=== PATIENT | female | born 1945 | race Caucasian/White ===

== ENCOUNTER 2019-02-28 07:00 | Outpatient (CLI) | payer MEDICARE, BC ==
--- NOTE | 2019-02-28 08:34 | CT ---
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 TECHNIQUE: Multiple CTA images were obtained of the abdomen and pelvis with bilateral lower extremity runoff uti lizing IV contrast and 3D reformatted imaging. Axial, coronal and sagittal reformatted images were constructed from the raw data. FINDINGS: ABDOMEN: Lung bases: Clear Liver: Diffuse fatty liver with scattered calcified granuloma Gallbladder: Cholelithiasis Pancreas: Normal. Adrenal glands: Normal. Spleen: Normal. Kidneys and ureters: Normal. No hydronephrosis. Lymph nodes:No lymphadenopathy. Free fluid in abdomen:No free fluid is evident. PELVIS: Small and large bowel: There is a mild amount of retained stool within the colon. The small bowel is of normal caliber. There are scattered colonic diverticulosis. Appendix:Normal Bladder: Normal. Rectal and perirectal soft tissues:Normal. Reproductive structures: Normal. Free fluid in pelvis: No free fluid is evident. Lymphadenopathy pelvis: No lymphadenopathy is evident. Osseous structures: No acute osseous abnormality. No destructive osteolytic or osteoblastic lesion i s identified. There is scattered degenerative and osteoarthritic changes. Soft tissues:Normal. VASCULATURE: Aorta: There is mild to moderate atherosclerotic irregularity involving the abdominal aorta without a neurysmal dilatation, dissection or focal occlusion. Celiac:Normal in caliber without evidence of stenosis or occlusion. SMA:Normal in caliber without evidence of stenosis or occlusion. Renal arteries:There is mild atherosclerotic calcification involving the proximal renal arteries bila terally without hemodynamically significant stenosis. LIONEL:Normal in caliber without evidence of stenosis or occlusion. Right common iliac artery: Normal in caliber without evidence of stenosis or occlusion. Right external iliac artery: Normal in caliber without evidence of stenosis or occlusion. Right commo n iliac artery measures 4.8 mm. There is mild irregularity seen proximally within the right external iliac as well as within its mid segment. Right internal iliac artery: There is complete occlusion of the proximal right internal iliac artery with reconstitution approximately 1 cm distally through collateral vasculature. Left common iliac artery: There is complete occlusion of the left common iliac artery from its origin with reconstitution seen at the level of the left external and left internal iliac arteries. Left external iliac artery: Measures 4.5 mm in its greatest diameter. There is mild luminal caliber n arrowing distally. No definite hemodynamically significant stenosis is evident.. Left internal iliac artery: Normal in caliber without evidence of stenosis or occlusion. Right common femoral artery: Measures 7.4 mm without hemodynamically significant stenosis. Right deep femoral artery: Normal in caliber without evidence of stenosis or occlusion. Right superficial femoral artery: Normal in caliber without evidence of stenosis or occlusion. Right popliteal artery: Normal in caliber without evidence of stenosis or occlusion. Right posterior tibial artery: Normal in caliber without evidence of stenosis or occlusion. Right anterior tibial artery: The right anterior tibial artery is visualized up to the level of the ankle joint. There is predominantly two-vessel runoff to the right ankle. Right peroneal artery: Normal in caliber without evidence of stenosis or occlusion. Left common femoral artery: Measures 6.6 mm. There is mild luminal caliber narrowing due to an eccen tric partially calcified atherosclerotic plaque. Left deep femoral artery: Normal in caliber without evidence of stenosis or occlusion. Left superficial femoral artery: Normal in caliber without evidence of stenosis or occlusion. Left popliteal artery: Normal in caliber without evidence of stenosis or occlusion. Left posterior tibial artery: Normal in caliber without evidence of stenosis or occlusion. Left anterior tibial artery: The left anterior tibial artery is visualized up to the level of the di stal tibial plafond. There is two-vessel runoff to the level of the ankle. Left peroneal artery: Normal in caliber without evidence of stenosis or occlusion. Additional findings: None. IMPRESSION: 1. Complete occlusion of the left common iliac artery with reconstitution of flow seen at the level o f proximal left external iliac and left internal iliac arteries through collateral vessels. 2. Loss of visualized flow at the level of the ankles in the anterior vertebral arteries bilaterally. 3. Complete occlusion of the right internal iliac artery at its origin with reconstitution distally t hrough collaterals. 4. Mild luminal caliber narrowing involving the left common femoral artery and right external iliac a rtery. 5. Fatty liver with findings of prior granulomatous disease 6. Colonic diverticulosis. 7. Cholelithiasis
== END 2019-02-28 07:01 | disposition home or self-care (01) ==
LOC: CT 07:00
PROVIDERS: ATTEND Thoracic Surgery (Cardiothoracic Vascular Surgery)
DX: I70.212 Atherosclerosis of native arteries of extremities with intermittent claudication, left leg (principal); K76.0 Fatty (change of) liver, not elsewhere classified; K57.30 Diverticulosis of large intestine without perforation or abscess without bleeding; K80.20 Calculus of gallbladder without cholecystitis without obstruction
CPT/HCPCS: 75635

== ENCOUNTER 2019-03-01 06:02 | Day surgery (SDC) | payer MEDICARE, BC ==
[2019-02-28 14:29] VITALS: BMI 23.8
[2019-03-01] MEDS ORDERED: Heparin (Artline) 500 ML ONE (06:37)
[2019-03-01] MEDS ORDERED: Midazolam HCl 2 mg/2 ml Vial ONE (07:05)
[2019-03-01] MEDS ORDERED: Heparin 10,000 UNITS/1 ML VIAL ONE (07:24)
[2019-03-01] MEDS ORDERED: Protamine Sulfate 50 MG/5 ML VIAL ONE (08:10)
[2019-03-01] MEDS ORDERED: Clopidogrel Bisulfate 300 MG TAB ONE (08:18)
[2019-03-01] MEDS ORDERED: Iopamidol 370 76% 50 ML VIAL FS ONE (11:23)
--- NOTE | 2019-03-01 13:19 | OP ---
DATE OF PROCEDURE: 03/01/2019 PREOPERATIVE DIAGNOSIS: Peripheral artery disease with an occluded left iliac artery. POSTOPERATIVE DIAGNOSIS: Peripheral artery disease with an occluded left iliac artery. PROCEDURES PERFORMED: Aortogram, left lower extremity runoff with KARATE TEACHER, complete occlusion of left common iliac 4-mm balloon, Innova 8 x 60 stent, left common iliac artery, left external iliac artery 6 x 17 Express LD stent. CONTRAST: 32. FLUORO: 11 minutes. SEDATION: Versed. DESCRIPTION OF PROCEDURE: After prepping and draping in the usual fashion, left femoral artery was punctured with ultrasound guidance and a wire inserted. A 5-[place] dilator sheath was passed and a [facility] [employer] wire was advanced to the proximal common iliac artery, where a [place] catheter was advanced over it and then a Glidewire exchanged entering the aorta confirmed with flush. A Murray wire was then placed following which a 4 mm x 40 balloon was inflated x2 to cover the entire lesion, which measured about 6 cm. Repeat angiography showed patency. Following which, an 8 x 60 Innova stent was placed. Following dilation with a 6 x 60 balloon, the Innova stent flared into the aorta as anticipated, but came up short of the distal common iliac artery by about 5 mm and there was significant residual stenosis there. A 6-mm balloon was then used to inflate this, but this did not improve the stenosis and for this reason, a 6 x 17 Express stent was deployed over this area essentially occluding the internal iliac artery. Runoff demonstrated excellent result with no residual stenosis and runoff into the lower leg was obtained demonstrating widely patent SFA, popliteal, anterior tibial takeoff and tibioperoneal takeoff and runoff of the foot was not obtained. The patient tolerated the procedure well. Job ID: [id number]
== END 2019-03-01 13:25 | disposition home or self-care (01) ==
LOC: CCL 06:02
PROVIDERS: ATTEND Thoracic Surgery (Cardiothoracic Vascular Surgery)
PROC: 047D3DZ Dilation of Left Common Iliac Artery with Intraluminal Device, Percutaneous Approach (ICD-10-PCS; principal; 2019-03-01)
PROC: 047J3DZ Dilation of Left External Iliac Artery with Intraluminal Device, Percutaneous Approach (ICD-10-PCS; 2019-03-01)
DX: I70.212 Atherosclerosis of native arteries of extremities with intermittent claudication, left leg (principal); I10 Essential (primary) hypertension; E78.00 Pure hypercholesterolemia, unspecified; Z79.82 Long term (current) use of aspirin; Z79.899 Other long term (current) drug therapy
CPT/HCPCS: 37221; 76942; 85347; 99152; C1725; C1769; C1876; J1644; J2250; J2720; Q9967